=== PATIENT | male | born 1965 | race Caucasian/White ===

== ENCOUNTER 2019-10-03 07:06 | Day surgery (SDC) | payer OTHER ==
--- NOTE | 2019-09-30 13:33 | NUR ---
DR. Shamar KNIGHT CALLED REGARDING ORDER FOR PRE-OP CXR. NEW ORDER RECEIVED AND CARRIED OUT.
[~2019-10-03] VITALS: Ht 175.3 cm; Wt 93.4 kg
[2019-10-03 07:41] VITALS: BP 140/95
--- NOTE | 2019-10-03 12:35 | NUR ---
RECEIVED PT FROM OR. AAOX4, SLIGHTLY DROWSY. RES E/U, LUNG SOUNDS CLR. NO SOB NOTED. O2 SAT 94% ON 2L/MIN VIA NC. NON TELE. DENIES CHEST PAIN/PRESSURE. ABD SOFT WITH ACTIVE BOWEL SOUNDS. NO GI/U COMPLAINT. S/P ORIF OF L HUMERUS FRACTURE WITH LEFT ARM SLING. DRESSING CDI AND PATENT. CMS PRESENT. IV SITE TO R HAND SL W NO SIGNS OF INFILTRATION NOTED. BED IN LOWEST POSITION, CALL LIGHT WITHIN REACH. WILL CONTINUE TO MONITOR
--- NOTE | 2019-10-03 14:35 | NUR ---
PT C/O RADIATING PAIN ON LEFT ARM, GIVEN NORCO PER EMAR. ALSO, SPOKE TO DR KNIGHT ABOUT PT'S COMPLAINT PER PT'S REQUEST.
[2019-10-03 16:07] VITALS: BP 147/92
--- NOTE | 2019-10-03 18:56 | NUR ---
PT EATING DINNER WITH NO APPARENT DISTRESS. NO SIGNIFICANT CHANGES NOTED. WILL ENDORSE TO NEXT SHIFT.
--- NOTE | 2019-10-03 20:00 | NUR ---
RECEIVED PT IN BED AWAKE, ALERT, ORIENTED X4. SPEECH CLEAR. ABLE TO MAKE NEEDS KNOWN. LUNG SOUNDS CLEAR. BREATHING EASILY ON ROOM AIR. BS ACTIVE IN ALL FOUR QUADS. NO ABD PAIN NOTED. LEFT ARM IN SLING, S/P ORIF. MILD PAIN NOTED, TOLERABLE FOR PT AT THIS TIME. PT ABLE TO AMBULATE WITHOUT ASSISTANCE. IV HL TO RIGHT HAND. SHIFT ASSESSMENT COMPLETED. CALL LIGHT WITHIN REACH. BED IS IN LOWEST POSITION. WILL CONTINUE TO MONITOR CLOSELY.
[2019-10-03 21:09] VITALS: BP 116/73
--- NOTE | 2019-10-03 23:00 | NUR ---
PT MOVED TO ROOM 237B. ALL NEEDS TENDED TO. WILL CONTINUE TO MONITOR CLOSELY.
--- NOTE | 2019-10-04 | NUR ---
PT C/O PAIN TO LEFT SHOULDER, MEDICATED WITH DILAUDID. ALL NEEDS TENDED TO. WILL CONTINUE TO MONITOR CLOSELY.
--- NOTE | 2019-10-04 03:00 | NUR ---
NORCO GIVEN AT THIS TIME FOR PAIN.
[2019-10-04 06:14] VITALS: BP 133/85
--- NOTE | 2019-10-04 06:20 | NUR ---
PT AWAKE, OOB AMBULATING WITHOUT DIFFICULTIES. LEFT ARM REMAINS IN SLING, SLIGHT PAIN, TOLERABLE AT THIS TIME. ALL NEEDS TENDED TO. WILL ENDORSE TO INCOMING SHIFT.
--- NOTE | 2019-10-04 08:16 | NUR ---
PATIENT A/OX4 ABLE TO MAKE NEEDS KNOWN, FOLLOWS COMMANDS, SPEECH CLEAR. LUNGS CTA, NO RESP DISTRESS ON RA, EQUAL/SYMM CHEST RISE. DENIES FEELING SOB OR CP. BOWEL SOUNDS ACTIVE, REPORTS PASSING GAS, DENIES ANY NAUSEA/ABD DISCOMFORT. SLING NOTED IN PLACE TO LEFT ARM, DRESSINGS TO LEFT ARM DRY AND INTACT. REPORTS PAIN 7/10 REQUESTING FOR DILAUDID. GIVEN. IV SITE WNL, FLUSHED AND PATENT. SAFETY PREC REINFORCED. CALL LIGHT WITHIN REACH.
[2019-10-04 08:20] VITALS: BP 130/93
[2019-10-04 08:44] VITALS: BP 139/92
[2019-10-04 11:33] VITALS: BP 139/92
--- NOTE | 2019-10-04 12:39 | NUR ---
DISCHARGE INSTRUCTIONS AND PRESCRIPTION GIVEN TO PATIENT. PER DR KNIGHT, OFFICE WILL CALL PATIENT TO SET UP A FOLLOW UP APPOINTMENT THIS WEEK. PATIENT VERBALIZED UNDERSTANDING. IV DC'D CATH INTACT. ALL QUESTIONS/CONCERNS ADDRESSED.
== END 2019-10-04 12:38 | disposition home or self-care (01) ==
LOC: DS 07:06 → MU 07:06 → DS 09:00 → MU 14:13 → DS 10-04 12:38
DX: S42.322A Displaced transverse fracture of shaft of humerus, left arm, initial encounter for closed fracture (principal); I10 Essential (primary) hypertension; F17.210 Nicotine dependence, cigarettes, uncomplicated; Z88.0 Allergy status to penicillin; Z79.899 Other long term (current) drug therapy; X58.XXXA Exposure to other specified factors, initial encounter; Y93.89 Activity, other specified; Y92.89 Other specified places as the place of occurrence of the external cause; Y99.8 Other external cause status
CPT/HCPCS: G0378; J0330; J0690; J1170; J2175; J2250; J2405; J2704; J3010; J3490; J7120